=== PATIENT | female | born 1995 | race Hispanic/Latino ===

== ENCOUNTER 2021-11-24 17:41 | Emergency (ER) | payer OTHER, SELFPAY ==
[2021-11-24 17:47] VITALS: BP 103/58; PULSE 63; RESP 14; TEMP 36.8; O2SAT 99; BMI 27.4
[2021-11-24 18:18] LABS: COVID19 -Nasal RAPID Negative (Negative)
--- NOTE | 2021-11-24 20:44 | ED.URI ---
HPI - URI/Sore Throat General Chief Complaint: Upper Respiratory Symptoms Stated Complaint: sore throat, runny nose, headache Time Seen by Provider: 11/24/21 20:39 Source: patient Mode of arrival: Ambulatory History of Present Illness HPI Narrative: Patient is a 26-year-old female who was exposed to COVID at work 6 days ago. She is vaccinated. She is completely asymptomatic. Related Data Allergies Allergy/AdvReac Type Severity Reaction Status Date / Time No Known Drug Allergies Allergy Verified 11/24/21 17:50 Review of Systems Review of Systems Narrative: GENERAL: Denies chills,fever HEENT: Denies throat pain RESPIRATORY: Denies dyspnea, cough, wheezing CARDIOVASCULAR: Denies chest pain, palpitations GASTROINTESTINAL: Denies nausea, vomiting MUSCULOSKELETAL: Denies extremity pain, injury SKIN: No rash, no laceration, no pruritus NEUROLOGIC: Denies weakness, dizziness, headache, numbness 8 point review of systems is negative except for those stated above and HPI Patient History alcohol intake frequency: a few times a week Substance Use Type: does not use Exam Initial Vital Signs Initial Vital Signs: Vital Signs Temperature 98.2 F 11/24/21 17:47 Pulse Rate 63 11/24/21 17:47 Respiratory Rate 14 11/24/21 17:47 Blood Pressure 103/58 L 11/24/21 17:47 Pulse Oximetry 99 11/24/21 17:47 GENERAL: Well-appearing, well-nourished and in no acute distress. CARDIOVASCULAR: peripheral pulses in tact, cap refill <2 sec RESPIRATORY: No respiratory distress, speaks in full sentences without difficulty EXTREMITIES: Normal range of motion, no clubbing or edema. Neurovascularly intact NEUROLOGICAL: Cranial nerves II through XII grossly intact. Normal gait and speech. SKIN: Warm, dry, no petechiae, no rashes or lesions. Course Orders Ordered: ED Orders 11/24/21 17:54 COVID19 -Nasal swab/Pre-Proc Stat Vital Signs Vital signs: Vital Signs - 8 hr 11/24/21 21:02 Pulse Rate 78 Respiratory Rate 16 Blood Pressure 106/60 Pulse Oximetry 97 MDM - URI/Sore Throat Lab Data Labs: Lab Results 11/24/21 Range/Units 17:54 SARS-CoV-2 (PCR) Negative (Negative) Discharge Plan Departure Patient Disposition: Home Clinical Impression: Upper respiratory infection Instructions: DI for COVID-19 (Suspected or Confirmed ) Activity Restrictions/Additional Instructions: *You have been diagnosed with possible COVID however at this time test is negative *What to do: You are continuing to have COVID symptoms. I recommend retesting in about 3 days. *Continue to take medications as directed *Follow up with your primary care provider in 2-3 days or call [phone] *Return to ER if you should have increasing shortness of breath, his level less than 90% or any new, worsening or concerning symptoms
--- NOTE | 2021-11-24 21:01 | PC.NURSE ---
pt states she works with a person who is positive for covid and she was directly exposed and symptomatic with runny nose, congestion, and sore throat. states the person she works with tested positive yesterday. Pt's covid test was negative today but advised to presume she is positive and take a test in 3-5 days.
[2021-11-24 21:02] VITALS: BP 106/60; PULSE 78; RESP 16; O2SAT 97
== END 2021-11-24 21:02 | disposition home or self-care (01) ==
PROVIDERS: Emergency Medicine; Emergency Provider Emergency Medicine
DX: J06.9 Acute upper respiratory infection, unspecified (principal); Z20.822 Contact with and (suspected) exposure to COVID-19
CPT/HCPCS: 87635; 99281; C9803

== ENCOUNTER 2021-11-27 14:11 | Emergency (ER) | payer OTHER, SELFPAY ==
[2021-11-27 14:29] VITALS: BP 105/51; PULSE 85; RESP 22; TEMP 37.2; O2SAT 100
[2021-11-27 15:38] LABS: Adenovirus Not Detected (Not Detect); B. parapertussis Not Detected (Not Detecte); Bordetella pertussis Not Detected (Not Detecte); Chlamydophila pneumoniae Not Detected (Not Detect); Coronavirus 229E Not Detected (Not Detect); Coronavirus HKU1 Not Detected (Not Detect); Coronavirus NL 63 Not Detected (Not Detect); Coronavirus OC43 Not Detected (Not Detect); Human Metapneumovirus Not Detected (Not Detect); Human Rhinovirus/Enterovirus Not Detected (Not Detect); Influenza A Not Detected (Not Detect); Influenza B Not Detected (Not Detect); Mycoplasma pneumoniae Not Detected (Not Detect); Parainfluenza Virus 1 Not Detected (Not Detect); Parainfluenza Virus 2 Not Detected (Not Detect); Parainfluenza Virus 3 Not Detected (Not Detect); Parainfluenza Virus 4 Not Detected (Not Detect); Respiratory Syncytial Virus Not Detected (Not Detect); SARS- CoV-2 Detected (Not Detecte)
--- NOTE | 2021-11-27 16:59 | ED_ITS ---
HPI - Recheck/Abnormal Lab/Rx <ASHLY Tello - Last Filed: 11/27/21 17:03> General Chief Complaint: Recheck/Abnormal Lab/Rx Stated Complaint: Needs Retested for COVID, Body Aches,Fever,Sore Th Time Seen by Provider: 11/27/21 16:34 Source: patient Mode of arrival: Ambulatory History of Present Illness HPI narrative: 26-year-old female presents to the emergency department seeking COVID testing because a home test said that she was negative for COVID although she has had body aches, fever with a T-max of 103? last night, sore throat, and patient feels as if her symptoms indicate a positive COVID test. Patient denies nausea vomiting, shortness of breath, difficulty breathing, wheezing, back pain, syncope, lightheadedness or other. Patient reports she responded well to Tylenol last night, has been taking ibuprofen today with better fever control. Has not tried other [id number] medications. Patient is seeking a COVID test Related Data Allergies Allergy/AdvReac Type Severity Reaction Status Date / Time No Known Drug Allergies Allergy Verified 11/24/21 17:50 Review of Systems <ASHLY Tello - Last Filed: 11/27/21 17:03> Review of Systems Narrative: General: Endorses fever, chills Head/Neck: denies headache, neck pain, sore throat Eyes: denies visual changes, eye pain Cardio: denies chest pain, palpitations Respiratory: denies shortness of breath, endorses having a nonproductive cough GI: denies abdominal pain, nausea, vomiting, or diarrhea : denies dysuria, hematuria MSK: denies joint pain, muscle weakness Skin: denies rash, itching Neuro: denies numbness, tingling Patient History <ASHLY Tello - Last Filed: 11/27/21 17:03> alcohol intake frequency: a few times a week Substance Use Type: does not use Exam <ASHLY Tello Last Filed: 11/27/21 17:03> Narrative Exam Narrative: Independently reviewed vitals signs and nursing notes. General: Awake, alert, nontoxic, no cardiorespiratory distress, patient endorses muscle tension and tightness in her shoulders and back to palpation Head/Neck: Atraumatic, neck full range of motion , afebrile Eyes: EOMI, conjunctiva normal, no scleral injection Nose: nares patent, + rhinorrhea Mouth/Throat: moist mucus membranes, posterior pharynx mildly erythematous without exudate no oral lesions Cardio: Regular rate and rhythm, no peripheral edema Respiratory: respirations unlabored without wheezing, stridor, or rales. No retractions. GI: Abdomen soft, nontender MSK: Moves all extremities, neurovascularly intact Skin: Normal capillary refill, no rash Neuro: Normal speech and cognition, normal gait Initial Vital Signs Initial Vital Signs: Vital Signs Temperature 99.0 F 11/27/21 14:29 Pulse Rate 85 11/27/21 14:29 Respiratory Rate 22 11/27/21 14:29 Blood Pressure 105/51 L 11/27/21 14:29 Pulse Oximetry 100 11/27/21 14:29 <Radha Eugene DO - Last Filed: 11/30/21 13:16> Initial Vital Signs Initial Vital Signs: Vital Signs Temperature 99.0 F 11/27/21 14:29 Pulse Rate 85 11/27/21 14:29 Respiratory Rate 22 11/27/21 14:29 Blood Pressure 105/51 L 11/27/21 14:29 Pulse Oximetry 100 11/27/21 14:29 Course <ASHLY Tello - Last Filed: 11/27/21 17:03> Orders Ordered: ED Orders 11/27/21 14:35 Respiratory Panel (Film Array) Stat Vital Signs Vital signs: Vital Signs - 8 hr 11/27/21 14:29 Temperature 99.0 F Pulse Rate 85 Respiratory Rate 22 Blood Pressure 105/51 L Pulse Oximetry 100 <Radha Eugene DO - Last Filed: 11/30/21 13:16> Orders Ordered: ED Orders 11/27/21 14:35 Respiratory Panel (Film Array) Stat Vital Signs Vital signs: Vital Signs - 8 hr 11/27/21 14:29 Temperature 99.0 F Pulse Rate 85 Respiratory Rate 22 Blood Pressure 105/51 L Pulse Oximetry 100 MDM - Recheck/Abnormal Lab/Rx <ASHLY Tello - Last Filed: 11/27/21 17:03> Lab Data Labs: Lab Results 11/27/21 Range/Units 14:35 Chlamy pneumoniae PCR Not detected (Not Detect) Adenovirus (PCR) Not detected (Not Detect) B. pertussis DNA (PCR) Not detected (Not Detecte) B.parapertussis DNA PCR Not detected (Not Detecte) Coronavirus OC43 (PCR) Not detected (Not Detect) Coronavirus HKU1 (PCR) Not detected (Not Detect) Coronavirus 229E (PCR) Not detected (Not Detect) SARS-CoV-2 (PCR) Detected H (Not Detecte) Coronavirus NL63 (PCR) Not detected (Not Detect) Human Metapneumovir PCR Not detected (Not Detect) Influenza Type A (PCR) Not detected (Not Detect) Influenza Type B (PCR) Not detected (Not Detect) M. pneumoniae (PCR) Not detected (Not Detect) Parainfluenza 1 (PCR) Not detected (Not Detect) Parainfluenza 2 (PCR) Not detected (Not Detect) Parainfluenza 3 (PCR) Not detected (Not Detect) Parainfluenza 4 (PCR) Not detected (Not Detect) RSV (PCR) Not detected (Not Detect) Entero/Rhino (PCR) Not detected (Not Detect) MDM Narrative Medical decision making narrative: 26-year-old female COVID (+) on day [3] of symptoms without hypoxia, respiratory distress, dehydration, or focal exam to suggest secondary bacterial infection. Exam reassuring without abnormal breath sounds, any signs of respiratory distress, patient is not hypoxic. Discussed CDC guidelines for quarantine, mask wearing, physical distancing, and infection prevention measures such as frequent handwashing. Discussed supportive treatments: Tylenol/Motrin as needed for pain/fever. OTC decongestant medications and/or antihistamines for symptomatic relief. Maintain adequate fluid intake. Follow-up with PCP as directed. Return to clinic/ER instructions discussed for new, not improving, or worsening symptoms. All questions answered. <Radha Eugene, DO - Last Filed: 11/30/21 13:16> Lab Data Labs: Lab Results 11/27/21 Range/Units 14:35 Chlamy pneumoniae PCR Not detected (Not Detect) Adenovirus (PCR) Not detected (Not Detect) B. pertussis DNA (PCR) Not detected (Not Detecte) B.parapertussis DNA PCR Not detected (Not Detecte) Coronavirus OC43 (PCR) Not detected (Not Detect) Coronavirus HKU1 (PCR) Not detected (Not Detect) Coronavirus 229E (PCR) Not detected (Not Detect) SARS-CoV-2 (PCR) Detected H (Not Detecte) Coronavirus NL63 (PCR) Not detected (Not Detect) Human Metapneumovir PCR Not detected (Not Detect) Influenza Type A (PCR) Not detected (Not Detect) Influenza Type B (PCR) Not detected (Not Detect) M. pneumoniae (PCR) Not detected (Not Detect) Parainfluenza 1 (PCR) Not detected (Not Detect) Parainfluenza 2 (PCR) Not detected (Not Detect) Parainfluenza 3 (PCR) Not detected (Not Detect) Parainfluenza 4 (PCR) Not detected (Not Detect) RSV (PCR) Not detected (Not Detect) Entero/Rhino (PCR) Not detected (Not Detect) Discharge Plan Departure Patient Disposition: Home Clinical Impression: COVID Instructions: DI for COVID-19 (Suspected or Confirmed ) Activity Restrictions/Additional Instructions: *You have been diagnosed with COVID-19. New CDC recommendations as of 11/13/21 are: - Stay home for 5 days. - If symptoms have resolved or asymptomatic, you can leave your house but need to wear a mask for 5 additional days. Stay home >5 days if fever has not yet resolved. - Follow employer/school recommendations for return policies. The local Dept of Health will contact patient with additional information. Stay well hydrated, take Motrin or Tylenol for fever/pain, and can take o [id number] medications if needed for cold symptoms. If you begin to feel short of breath or develop chest pain, please seek medical evaluation. *What to do: *Please continue to take your regular medications as directed. [ ] New medication prescriptions sent to your pharmacy: [ ] [ ] New medication written as a paper prescription [ ] No new medications given *Please follow up with your primary care provider in 2-3 days, call for an appointment. Let them know you were seen in the Emergency Department and that we ask that you be seen in follow up. We will electronically transmit a record of today's note if your PCP is in our system *If you do not have a primary care provider please contact the [facility] Resource line at [phone]. They will ask some questions about your medical history and help get you set up with a doctor in the community. *Return to Emergency Department if you should have any new, worsening or concerning symptoms, such as [fever greater than 101F, chills, worsening pain, persistent vomiting or other bothersome symptoms] <Radha Eugene, DO - Last Filed: 11/30/21 13:16> Cosign ED Attending Ollie Attestation: I was immediately available in the department for consultation. Documentation has been reviewed.
== END 2021-11-27 17:35 | disposition home or self-care (01) ==
PROVIDERS: Emergency Medicine; Emergency Provider Nurse Practitioner Critical Care Medicine
DX: U07.1 COVID-19 (principal)
CPT/HCPCS: 87633; 99281; 99282

== ENCOUNTER → 2023-03-28 13:27 | Outpatient (CLI) | payer OTHER, SELFPAY | PROVIDERS: Referring Provider Student in an Organized Health Care Education/Training Program; Visit Provider Student in an Organized Health Care Education/Training Program | DX: M25.539 Pain in unspecified wrist (principal) | CPT/HCPCS: 95886; 95912 ==